=== PATIENT | male | born 1985 | race Caucasian/White ===

== ENCOUNTER 2016-05-27 10:00 | Emergency (ER) ==
[2016-05-27 10:51] VITALS: BP 153/72
[2016-05-27] MEDS ORDERED: NORCO-5 PO ONE (12:06)
[2016-05-27] MEDS ORDERED: ZOFRAN ODT PO ONE (12:06)
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
--- NOTE | 2016-05-27 13:23 | Diag Imaging Result Document ---
PROCEDURE NAME: CHEST-2 VIEWS - 05/27/2016 TWO VIEWS OF THE CHEST: Normal chest.
== END 2016-05-27 12:34 | disposition home or self-care (01) ==
LOC: ED 10:00
DX: M79.1 Myalgia (principal); Z89.021 Acquired absence of right finger(s); V69.40XA Driver of heavy transport vehicle injured in collision with unspecified motor vehicles in traffic accident, initial encounter
CPT/HCPCS: 71020; 99283